=== PATIENT | female | born 1985 | race Caucasian/White ===

== ENCOUNTER 2021-02-18 15:52 | Emergency (ER) | payer BC ==
[2021-02-18] MEDS ORDERED: HYDROcodone/Acetaminophen 5/325 mg Tablet ONE (16:24)
[2021-02-18] MEDS ORDERED: predniSONE 20 MG TAB ONE (16:24)
== END 2021-02-18 16:33 | disposition home or self-care (01) ==
LOC: MADERS 15:52
DX: M54.42 Lumbago with sciatica, left side (principal); E66.9 Obesity, unspecified
CPT/HCPCS: 99283; J7512

== ENCOUNTER 2021-12-24 08:50 | Emergency (ER) | payer BC ==
[2021-12-24 09:30] LABS: Bilirubin Negative (Negative); Blood, Urine Small (Negative); Glucose, Urine (Dipstick) Negative (Negative); Ketone, Urine Negative (Negative); Leukocyte Small (Negative); Nitrite Negative (Negative); Protein, Urine (Dipstick) Negative (Neg-Trace); Urobilinogen 0.2 mg/dL (Less than 2)
[2021-12-24 09:33] LABS: Pregnancy Test - Urine (BHCG) Negative (Negative); Pregu Control Background? CLEAR/WHITE (CLR/WHITE); Pregu Control Bar Appear? YES (CONTROL BAR)
[2021-12-24 09:34] LABS: Bacteria/HPF 2+ HPF (None Seen); Clarity Hazy (Clear); WBC/HPF Greater Than 50 HPF (0-3)
[2021-12-24] MEDS ORDERED: cefTRIAXone\\ROCEPHIN 1 GM VIAL ONE (09:50)
[2021-12-24] MEDS ORDERED: Lidocaine 1% (PF) 30 ML VIAL ONE (09:50)
== END 2021-12-24 10:14 | disposition home or self-care (01) ==
LOC: MADERS 08:50
DX: N10 Acute pyelonephritis (principal); E66.9 Obesity, unspecified
CPT/HCPCS: 71046; 81003; 81015; 81025; 87086; 93005; 96372; J0696; J2001

== ENCOUNTER 2023-09-04 08:39 | Emergency (ER) | payer BC ==
[2023-09-04 09:05] LABS: Bilirubin Negative (Negative); Blood, Urine Small (Negative); Clarity Slightly Cloudy (Clear); Glucose, Urine (Dipstick) Negative (Negative); Ketone, Urine Negative (Negative); Leukocyte Trace (Negative); Nitrite Negative (Negative); Protein, Urine (Dipstick) Negative (Neg-Trace); Urobilinogen 0.2 mg/dL (Less than 2)
[2023-09-04 09:06] LABS: Specific Gravity, Urine 1.021 (1.002-1.036)
[2023-09-04 09:09] LABS: Bacteria/HPF 1+ HPF (None Seen); CAUTI Indications for Culture Dysuria,urgency,freq; RBC/HPF 0-3 HPF (0-3)
[2023-09-04 09:11] LABS: Urine Culture Reflex No No
== END 2023-09-04 09:32 | disposition home or self-care (01) ==
LOC: MADERS 08:39
DX: S39.012A Strain of muscle, fascia and tendon of lower back, initial encounter (principal); N39.0 Urinary tract infection, site not specified; F17.290 Nicotine dependence, other tobacco product, uncomplicated; X58.XXXA Exposure to other specified factors, initial encounter
CPT/HCPCS: 81001; 87086; 99283